=== PATIENT | female | born 1970 ===

== ENCOUNTER 2017-11-06 07:43 | Outpatient (CLI) | payer OTHER | END 2017-11-06 07:49 | disposition home or self-care (01) | LOC: SONOGRAMA 07:43 | DX: E04.1 Nontoxic single thyroid nodule (principal) ==

== ENCOUNTER → 2021-04-23 07:51 | Outpatient (CLI) | payer OTHER | END | disposition home or self-care (01) | LOC: LAB 07:51 | PROVIDERS: ATTEND Internal Medicine | DX: I10 Essential (primary) hypertension (principal); E55.9 Vitamin D deficiency, unspecified; Z12.11 Encounter for screening for malignant neoplasm of colon; K57.91 Diverticulosis of intestine, part unspecified, without perforation or abscess with bleeding; E04.1 Nontoxic single thyroid nodule ==

== ENCOUNTER → 2021-04-28 11:59 | Outpatient (CLI) | payer OTHER | END | disposition home or self-care (01) | LOC: LAB 11:59 | PROVIDERS: ATTEND Internal Medicine | DX: E04.1 Nontoxic single thyroid nodule (principal); I10 Essential (primary) hypertension; E55.9 Vitamin D deficiency, unspecified; Z12.11 Encounter for screening for malignant neoplasm of colon; K57.91 Diverticulosis of intestine, part unspecified, without perforation or abscess with bleeding ==

== ENCOUNTER → 2021-04-28 12:34 | Outpatient (CLI) | payer OTHER | END | disposition home or self-care (01) | LOC: NUCLEAR 12:34 | PROVIDERS: ATTEND Internal Medicine | DX: M81.0 Age-related osteoporosis without current pathological fracture (principal); Z00.8 Encounter for other general examination ==

== ENCOUNTER → 2021-04-28 | Outpatient (CLI) | payer OTHER | END | disposition home or self-care (01) | LOC: MAMO-SONO 12:20 → EDBD 13:00 | PROVIDERS: ATTEND Internal Medicine | DX: E04.1 Nontoxic single thyroid nodule (principal); Z12.31 Encounter for screening mammogram for malignant neoplasm of breast; Z87.898 Personal history of other specified conditions; N64.59 Other signs and symptoms in breast ==